=== PATIENT | male | born 1990 | race Caucasian/White ===

== ENCOUNTER 2022-03-06 23:00 | Emergency (ER) | payer OTHER ==
[~2022-03-06] VITALS: Ht 175.3 cm; Wt 81.6 kg
[2022-03-06 23:00] VITALS: BP 135/98
--- NOTE | 2022-03-06 23:00 | NUR ---
PT [facility] TO [facility]
--- NOTE | 2022-03-06 23:40 | NUR ---
Patient discharged with v/s stable. Written and verbal after care instructions given and explained. Patient verbalized understanding. Ambulatory with in custody. All questions addressed prior to discharge. Advised to follow up with PMD.
== END 2022-03-06 23:40 ==
LOC: MED 23:00
CPT/HCPCS: 99283